=== PATIENT | female | born 1965 | race Caucasian/White ===

== ENCOUNTER → 2017-04-19 | Outpatient (CLI) | payer OTHER ==
--- NOTE | 2017-04-20 01:09 | REP ---
Clinical: Pain. Effusion. Technique: AP, lateral, bilateral oblique and sunrise views of the left knee. 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 No acute fracture or dislocation. No effusion. Impression: Age-related changes along with evidence for prior trauma. No acute fracture or dislocation. No effusion. Signed by Moo Caldwell MD 04/20/2017 01:01 A
== END ==
LOC: M CLY 11:35
PROVIDERS: ATTEND Family Medicine
DX: M25.462 Effusion, left knee (principal)

== ENCOUNTER → 2017-04-19 | Outpatient (REF) | payer OTHER ==
[2017-04-19 17:40] LABS: ALBUMIN 3.6 GM/DL (3.2-5.2); ALBUMIN/GLOBULIN RATIO 0.97 (1.00-1.93); ALKALINE PHOSPHATASE 84 U/L (45-117); ALT/SGPT 25 U/L (12-78); ANION GAP 6 MEQ/L (8-16); AST/SGOT 21 U/L (15-37); BILIRUBIN,TOTAL 0.4 MG/DL (0.2-1.0); BLOOD UREA NITROGEN 14 MG/DL (7-18); CARBON DIOXIDE LEVEL 32 MEQ/L (21-32); CHLORIDE LEVEL 96 MEQ/L (98-107); CREATININE FOR GFR 0.95 MG/DL (0.55-1.02); GLOMERULAR FILTRATION RATE > 60.0 (>51); GLUCOSE, FASTING 95 MG/DL (70-105); POTASSIUM SERUM 3.1 MEQ/L (3.5-5.1); SODIUM LEVEL 134 MEQ/L (136-145); TOTAL PROTEIN 7.3 GM/DL (6.4-8.2)
== END ==
LOC: M SFHCCLAY 11:16
PROVIDERS: ATTEND Family Medicine
DX: I10 Essential (primary) hypertension (principal)

== ENCOUNTER → 2017-04-26 | Outpatient (CLI) | payer OTHER ==
--- NOTE | 2017-04-26 09:09 | REP ---
MRI LEFT KNEE: TECHNIQUE: Axial proton density fat saturation, sagittal proton density T2 STIR, water excitation, coronal proton density, proton density fat saturation. There appears to be some degree of fraying centrally of the posterior horn of the lateral meniscus. The knee meniscus appears intact. Cruciate and collateral ligaments are intact. The extensor mechanism is intact. There is mild to moderate chondromalacia along the medial patellar facet. There is mild to moderate diffuse chondromalacia in the medial joint compartment with a tiny amount of subchondral marrow edema in the medial femoral condyle. There is a normal amount of joint fluid. No popliteal cyst is seen. IMPRESSION: There appears to be some degree of fraying/tearing centrally of the posterior horn of the lateral meniscus. The cruciate and collateral ligaments intact. 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 Signed by Fred Polanco MD 04/26/2017 05:12 P
== END ==
LOC: M RAD 07:24
PROVIDERS: ATTEND Family Medicine
DX: M25.562 Pain in left knee (principal)